=== PATIENT | male | born 1950 | race Caucasian/White ===

== ENCOUNTER 2019-01-30 23:45 | Emergency (ER) | payer MEDICARE ==
[~2019-01-30] VITALS: Ht 180.3 cm; Wt 100.0 kg
[~2019-01-30 23:45] MED LIST: ASPI-1265 PO; ATOR20TA PO; HCTZ25T PO; HYT1T PO; LABE100T5 PO; LOSA50TA64 PO; TERA2CAP4 PO
[2019-01-30 23:51] VITALS: BP 176/106
== END 2019-01-31 02:19 | disposition left against medical advice (07) ==
LOC: ER 23:46
DX: R05 Cough (principal); Z53.21 Procedure and treatment not carried out due to patient leaving prior to being seen by health care provider